=== PATIENT | male | born 1935 | race Two or more races ===

== ENCOUNTER → 2016-08-01 | Outpatient (REF) | payer MEDICARE ==
[~2016-08-01] MED LIST: /THIA10TA OR; AGGR1CAP PO; ALLOPOW4 PO; ASPI325T OR; ASPI81TA83 OR; COLA100C2 OR; DOXA1TAB49 PO; DOXAZOSIN PO; FLAG500T OR; FOLI1TAB OR; FOLI1TAB2 PO; GABA-279 PO; HYDR-3713 PO; KEPPRA PO; LOPR100T OR; LORA0.5T OR; MAG-TAB2 PO; MAGN400T5 PO; METO-209 PO; MULTCAP PO; MULTIVIT PO; NITR0.4S SL; PLAV75TA2 OR; SIMV40TA2 PO; SIMVPOW2 PO; TOPR100T OR; VITA100T OR; VITA100T60 PO; VITATAB11 PO; ZYLO300T4 PO; aggrenox PO
[2016-08-01 18:55] LABS: INR 2.47
== END ==
LOC: M LABDRWCV 16:30
PROVIDERS: ATTEND Family Medicine
DX: I63.10 Cerebral infarction due to embolism of unspecified precerebral artery (principal)

== ENCOUNTER → 2016-08-29 | Outpatient (REF) | payer MEDICARE ==
[2016-08-29 17:26] LABS: INR 2.43
== END ==
LOC: M LABDRWCV 16:28
PROVIDERS: ATTEND Family Medicine
DX: Z51.81 Encounter for therapeutic drug level monitoring (principal); Z79.01 Long term (current) use of anticoagulants; I63.10 Cerebral infarction due to embolism of unspecified precerebral artery

== ENCOUNTER → 2016-10-26 | Outpatient (REF) | payer MEDICARE ==
[~2016-10-26] MED LIST changes: -FOLI1TAB2 PO; +FOLI1TAB4 PO; -METO-209 PO; +METO1TAB33 PO
[2016-10-26 19:59] LABS: INR 1.85
== END ==
LOC: M LAB REF 16:20
PROVIDERS: ATTEND Family Medicine
DX: I63.10 Cerebral infarction due to embolism of unspecified precerebral artery (principal); Z51.81 Encounter for therapeutic drug level monitoring; Z79.01 Long term (current) use of anticoagulants

== ENCOUNTER → 2016-11-28 | Outpatient (REF) | payer MEDICARE ==
[2016-11-28 18:54] LABS: INR 1.73
== END ==
LOC: M LAB REF 07:00
PROVIDERS: ATTEND Family Medicine
DX: I63.10 Cerebral infarction due to embolism of unspecified precerebral artery (principal); Z51.81 Encounter for therapeutic drug level monitoring; Z79.01 Long term (current) use of anticoagulants

== ENCOUNTER → 2017-01-30 | Outpatient (REF) | payer MEDICARE ==
[2017-01-30 19:43] LABS: INR 2.85
== END ==
LOC: M LABDRWCV 16:25
PROVIDERS: ATTEND Family Medicine
DX: I63.10 Cerebral infarction due to embolism of unspecified precerebral artery (principal); Z51.81 Encounter for therapeutic drug level monitoring; Z79.01 Long term (current) use of anticoagulants

== ENCOUNTER → 2017-02-13 | Outpatient (REF) | payer MEDICARE ==
[2017-02-13 17:35] LABS: INR 2.29
== END ==
LOC: M LABDRWCV 16:20
PROVIDERS: ATTEND Family Medicine
DX: I63.10 Cerebral infarction due to embolism of unspecified precerebral artery (principal); Z51.81 Encounter for therapeutic drug level monitoring; Z79.01 Long term (current) use of anticoagulants

== ENCOUNTER → 2017-03-20 | Outpatient (REF) | payer MEDICARE ==
[2017-03-20 17:52] LABS: INR 2.4
== END ==
LOC: M LAB REF 16:58
PROVIDERS: ATTEND Family Medicine
DX: I63.10 Cerebral infarction due to embolism of unspecified precerebral artery (principal); Z51.81 Encounter for therapeutic drug level monitoring; Z79.01 Long term (current) use of anticoagulants

== ENCOUNTER 2018-01-13 21:12 | Emergency (ER) | payer MEDICARE ==
[2018-01-13 22:12] LABS: HEMATOCRIT 33.5 % (42.0-52.0); HEMOGLOBIN 11.7 g/dl (13.5-17.5); MEAN CORPUSCULAR HEMOGLOBIN 32.5 pg (27.0-33.0); MEAN CORPUSCULAR HGB CONC 34.9 g/dl (32.0-36.5); MEAN CORPUSCULAR VOLUME 93.1 fl (80.0-96.0); RED CELL DISTRIBUTION WIDTH 16.3 % (11.5-14.5); WHITE BLOOD COUNT 4.4 10^3/uL (4.0-10.0)
[2018-01-13 22:13] LABS: ADD MANUAL DIFFER YES; DIFF SLIDE NUMBER 188; POSITIVE MORPH POS FLAG
[2018-01-13 22:18] LABS: ANION GAP 10 MEQ/L (8-16); BLOOD UREA NITROGEN 20 MG/DL (7-18); CALCIUM LEVEL 8.1 MG/DL (8.8-10.2); CARBON DIOXIDE LEVEL 24 MEQ/L (21-32); CHLORIDE LEVEL 107 MEQ/L (98-107); CREATININE FOR GFR 1.89 MG/DL (0.70-1.30); GLOMERULAR FILTRATION RATE 36.4 (>35); GLUCOSE, FASTING 97 MG/DL (70-100); POTASSIUM SERUM 3.6 MEQ/L (3.5-5.1); SODIUM LEVEL 141 MEQ/L (136-145)
[2018-01-13 22:24] LABS: PLATELET COUNT, AUTOMATED 39 10^3/uL (150-450)
[2018-01-13 22:25] LABS: IMMATURE PLATELET FRACTION % 14.5 % (0.0-10.9)
[2018-01-13 22:31] LABS: ATYPICAL LYMPH 6 % (0-5); BANDS 1 % (< 11); BASOPHILS 3 % (0-4); EOSINOPHILS 9 % (0-5); LYMPHOCYTES 37 % (16-52); MONOCYTES 3 % (0-8); NEUTROPHILS 41 % (35-75); PLATELET ESTIMATE MARKED DECREASE (NORMAL)
[2018-01-13 22:33] LABS: ANISOCYTOSIS 1+
[2018-01-13] MEDS: NS 500 ML IV (22:34)
== END 2018-01-14 00:39 | disposition home or self-care (01) ==
LOC: M ED 01-14 00:39
DX: D69.6 Thrombocytopenia, unspecified (principal); I10 Essential (primary) hypertension; F03.90 Unspecified dementia, unspecified severity, without behavioral disturbance, psychotic disturbance, mood disturbance, and anxiety; E78.5 Hyperlipidemia, unspecified; Z86.73 Personal history of transient ischemic attack (TIA), and cerebral infarction without residual deficits
CPT/HCPCS: 70450